=== PATIENT | male | born 1995 | race Hispanic/Latino ===

== ENCOUNTER 2022-09-06 19:53 | Emergency (ER) | payer OTHER ==
[2022-09-06] MEDS ORDERED: FENTANYL CITR 100 MCG/2 ML ONE (20:17)
[2022-09-06] MEDS ORDERED: TETANUS & DIPHTHERIA TOX,ADULT 0.5 ML VIAL ONE (20:19)
[2022-09-06 20:44] LABS: Absolute Lymphocytes (CBC) 2.2 K/uL (0.7-4.9); Hematocrit 47.6 % (39.6-49.0); Lymphocytes % 14.6 % (15.3-44.8); MCV 82.1 fL (80-100); MPV 9.4 fL (7.6-11.3); RBC Red Blood Cell Count 5.79 M/uL (4.33-5.43)
[2022-09-06] MEDS ORDERED: NA CHLORIDE 0.9% 1,000 ML ONE (20:51)
[2022-09-06 21:03] LABS: Potassium 3.9 mmol/L (3.5-5.1)
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
[2022-09-06] MEDS ORDERED: LIDOCAINE 1% MPF 5 ML VIAL ONE ×2 (21:27→21:28)
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
[2022-09-06 23:04] VITALS: TEMP 97.9; O2SAT 100
[2022-09-06 23:21] VITALS: BP 135/84
== END 2022-09-06 22:55 | disposition home or self-care (01) ==
LOC: ER 19:53
PROC: 0JQ10ZZ Repair Face Subcutaneous Tissue and Fascia, Open Approach (ICD-10-PCS; principal; 2022-09-06)
DX: S01.81XA Laceration without foreign body of other part of head, initial encounter (principal); S02.2XXA Fracture of nasal bones, initial encounter for closed fracture; S60.222A Contusion of left hand, initial encounter; S20.212A Contusion of left front wall of thorax, initial encounter; Z23 Encounter for immunization; Z72.0 Tobacco use
CPT/HCPCS: 96361; 85025; 80048; 36415; 86900; 86850; 86901; 70450; 72125; 71260; 70486; 76377; 74177; 73130; 90471; 90714; 96374; 99284; 12011; Q9967; J2001; J3010; J7030